=== PATIENT | male | born 2000 | race Caucasian/White ===

== ENCOUNTER 2025-06-27 23:04 | Emergency (ER) | payer SELFPAY ==
[2025-06-27] MEDS: Diphtheria,Pertussis(Acell),Tetanus Vaccine 0.5 ML Syringe IM ONE (23:33)
[2025-06-27 23:40] VITALS: BP 112/65; PULSE 78
== END 2025-06-27 23:35 ==
LOC: JD.ED 23:04
DX: S80.211A Abrasion, right knee, initial encounter (principal); F10.10 Alcohol abuse, uncomplicated; F17.210 Nicotine dependence, cigarettes, uncomplicated; Z79.899 Other long term (current) drug therapy; Z23 Encounter for immunization; Y90.9 Presence of alcohol in blood, level not specified; W18.39XA Other fall on same level, initial encounter; Y93.89 Activity, other specified
CPT/HCPCS: 90471; 99284-25

== ENCOUNTER 2025-07-05 19:20 | Emergency (ER) | payer SELFPAY ==
[2025-07-05 20:33] VITALS: BP 118/85; PULSE 118
== END 2025-07-05 20:32 | disposition home or self-care (01) ==
LOC: JD.ED 19:20
DX: S61.011A Laceration without foreign body of right thumb without damage to nail, initial encounter (principal); S61.212A Laceration without foreign body of right middle finger without damage to nail, initial encounter; S41.111A Laceration without foreign body of right upper arm, initial encounter; X78.9XXA Intentional self-harm by unspecified sharp object, initial encounter; Z79.899 Other long term (current) drug therapy
CPT/HCPCS: 12002; 99283